=== PATIENT | female | born 1930 | race African-American/Black ===

== ENCOUNTER 2017-03-20 04:57 | Inpatient (IN) | payer OTHER ==
[~2017-03-20] VITALS: Ht 162.6 cm; Wt 85.7 kg
--- NOTE | ~2017-03-20 | EKG ---
[place] [address] [facility] [place] [address] ELECTROCARDIOGRAM REPORT Name: YSABEL CHAVARRIA Room #: 445-P ADM IN M.R.#: [id number] Admission: 03/20/17 Attend Phys: Rigo Schulte DO Discharge: Date of : 30 Report #: [id number] THIS REPORT FOR: //name// [facility] ED Test Date: 2017-03-20 Test Time: 05:47:17 Pat Name: YSABEL CHAVARRIA Department: Room: [facility] Gender: F Radio Frequency Design Engineer: ELVIRA : [id number] Requested By: Piero Allen Order Number: [id number] MD: Gatito Martins Measurements Intervals Corea Rate: 89 P: 70 KS: 186 QRS: 17 QRSD: 81 T: 43 QT: 375 QTc: 457 Interpretive Statements Sinus rhythm Minimal ST elevation, anterior leads No previous ECG available for comparison Electronically Signed On 03-20-2017 9:29:07 CDT by Gatito Martins [email or web address] <ELECTRONICALLY SIGNED> By: Gatito Martins MD, [facility] 03/20/17 0929 0547 [id number] Gatito Martins MD, FACC /EPI
--- NOTE | ~2017-03-20 | 2DMMODE ---
[facility] [address] [place] [address] 2 D/M-MODE ECHOCARDIOGRAM Name: DEONYSABEL Room #: 445-P [facility] IN .R.#: [id number] Admission: 03/20/17 Attend Phys: Rigo Schulte, Discharge: Date of : 30 Date of Service: 03/20/17 1120 Report #: [id number] THIS REPORT FOR: //name// APPROVED REPORT Study performed: 03/20/2017 10:30:43 EXAM: Comprehensive 2D, Doppler, and color-flow Echocardiogram Patient Location: Echo lab Room #: 445 Other Information Study Quality: Good Indications Murmur Hypertension/HDD 2D Dimensions RVDd: 23.65 mm LVEF(%): 57.69 (>50%) IVSd: 10.16 (7-11mm) LVOT Diam: 18.95 (18-24mm) LVDd: 40.05 mm PWd: 11.65 (7-11mm) Ascending Ao: 26.62 (22-36mm) LVDs: 28.06 (25-40mm) Aortic Root: 28.44 mm IVC: 7.00 mm Fernandez's LVEF: 57.69 % Volumes Left Atrial Volume (Systole) Single Plane 4CH: 39.68 mL Single Plane 2CH: 27.20 mL LA ESV Index: 18.00 mL/m2 Aortic Valve AoV Peak Mitchell.: 1.41 m/s AO Peak Gr.: 7.93 mmHg LVOT Max P.93 mmHg LVOT Max V: 0.99 m/s GUNNAR Vmax: 1.98 cm2 Mitral Valve E/A Ratio: 0.5 MV Decel. Time: 139.67 ms MV E Max Mitchell.: 0.62 m/s MV A Mitchell.: 1.20 m/s MV PHT: 40.51 ms [facility] [place] [address] 2 D/M-MODE ECHOCARDIOGRAM Name: YSABEL CHAVARRIA Room #: 445-P [facility] IN ..#: [id number] Admission: 03/20/17 Attend Phys: Rigo Schulte, Discharge: Date of : 30 Date of Service: 03/20/17 1120 Report #: [id number] IVRT: 121.11 ms Pulmonary Valve PV Peak Mitchell.: 1.17 m/s PV Peak Gr.: 5.48 mmHg Pulmonary Vein P Vein S: 0.56 m/s P Vein A: 0.32 m/s P Vein D: 0.36 m/s P Vein A Dur.: 124.6 msec P Vein S/D Ratio: 1.56 Tricuspid Valve TR Peak Mitchell.: 2.89 m/s RAP Estimate: 5.00 mmHg TR Peak Gr.: 33.37 mmHg Left Ventricle The left ventricle is normal size. There is normal left ventricular wall thickness. The left ventricular systolic function is normal. The left ventricular ejection fraction is within the normal range. LVEF is 55-60%. Mild diastolic dysfunction is present (impaired relaxation pattern). Right Ventricle The right ventricle is normal size. The right ventricular systolic function is normal. Atria The left atrium size is normal. Right atrium is at the upper limits of normal. Aortic Valve The aortic valve is normal in structure. No aortic regurgitation is present. There is no aortic valvular stenosis. Mitral Valve The mitral valve is normal in structure. Trace mitral regurgitation. No evidence of mitral valve stenosis. Tricuspid Valve The tricuspid valve is normal in structure. There is mild tricuspid regurgitation. The right atrial pressure is estimated at 5 mmHg and PAP is estimated at 38 mmHg. Pulmonic Valve Pulmonic valve is not well visualized. There is no pulmonic valvular regurgitation seen. [address] [address] 2 D/M-MODE ECHOCARDIOGRAM Name: YSABEL CHAVARRIA Room #: 445-P [facility] IN .R.#: [id number] Admission: 03/20/17 Attend Phys: Rigo Schulte, Discharge: Date of : 30 Date of Service: 03/20/17 1120 Report #: [id number] Great Vessels The aortic root is normal in size. IVC is normal in size and collapses >50% with inspiration. <Conclusion> The left ventricle is normal size. LVEF is 55-60%. The aortic valve is normal in structure. No aortic regurgitation is present. The mitral valve is normal in structure. Trace mitral regurgitation. The tricuspid valve is normal in structure. There is mild tricuspid regurgitation. The right atrial pressure is estimated at 5 mmHg and PAP is estimated at 38 mmHg. Pulmonic valve is not well visualized. <ELECTRONICALLY SIGNED> By: Sergio Burch MD 03/20/17 1120 19 19 Sergio Burch MD /INF
[2017-03-20 05:00] VITALS: BP 143/76
[2017-03-20 05:25] LABS: URINE BILIRUBIN NEGATIVE (Negative); URINE BLOOD TRACE (Negative); URINE COLOR YELLOW; URINE GLUCOSE-RANDOM* NEGATIVE (Negative); URINE KETONES NEGATIVE (Negative); URINE NITRITE NEGATIVE (Negative); URINE PROTEIN (DIPSTICK) TRACE (Negative); URINE SPECIFIC GRAVITY <= 1.005 (1.003-1.035); URINE UROBILINOGEN 0.2 E.U./dl (0.2-1.0)
[2017-03-20 05:33] LABS: AMP/METHAMP Negative (Negative); BARBITURATES Negative (Negative); BENZODIAZEPINES Negative (Negative); COCAINE Negative (Negative); METHADONE Negative (Negative); OPIATES Negative (Negative); PCP Negative (Negative); THC Negative (Negative)
[2017-03-20 05:42] LABS: CASTS None Seen /LPF (None Seen); SQUAMOUS 0-3 Few /LPF (0-3); URINE RBC 0-2 Rare /HPF (0-2); URINE WBC 0-5 Rare /HPF (0-5)
[2017-03-20 05:43] LABS: BACTERIA None Seen /HPF (None Seen); CRYSTALS None Seen /LPF (None Seen)
[2017-03-20 06:12] LABS: ABSOLUTE NEUTROPHILS 4.3 thou/uL (1.4-8.2); BASOPHILS 0.7 % (0.0-2.0); HEMATOCRIT 37.5 % (37.0-47.0); HEMOGLOBIN 12.6 gm/dL (12.0-15.0); LYMPHOCYTES 22.9 % (24.0-44.0); MCH 32.5 pg (26.0-34.0); MCHC 33.7 g/dL (28.0-37.0); MCV 96.3 fL (80.0-100.0); MONOCYTES 8.7 % (1.0-8.0); PLATELET COUNT 153 thou/uL (150-400); POLYS 66.7 % (36.0-66.0); RBC 3.89 mil/uL (4.20-5.00); RDW 13.6 % (10.5-14.5); WBC 6.5 thou/uL (4.0-11.0)
[2017-03-20 06:22] LABS: ANION GAP 10 mmol/L (7-16); BUN 23 mg/dL (7-18); CALCIUM 9.4 mg/dL (8.5-10.1); CHLORIDE 108 mmol/L (98-107); CO2 25 mmol/L (21-32); CREATININE 2.3 mg/dL (0.6-1.0); GLUCOSE 114 mg/dL (74-106); POTASSIUM 4.5 mmol/L (3.5-5.1); SODIUM 143 mmol/L (136-145)
[2017-03-20 06:28] LABS: ALBUMIN 3.5 g/dL (3.4-5.0); ALKALINE PHOSPHATASE 94 U/L (46-116); SALICYLATE < 2.8 mg/dL (2.8-20.0); SGOT 30 U/L (15-37); SGPT 16 U/L (30-65); TOTAL BILIRUBIN 0.5 mg/dL (<0.1-1.0); TOTAL PROTEIN 7.6 g/dL (6.4-8.2); TROPONIN-I 0.06 ng/mL (<0.04-0.07)
[2017-03-20 06:32] LABS: ACETAMINOPHEN < 2 ug/mL (10-30)
[2017-03-20 06:41] LABS: MANUAL DIFF NO
[2017-03-20 07:45] VITALS: BP 157/75
[2017-03-20 09:15] VITALS: BP 152/72
[2017-03-20] MEDS ORDERED: LOVASTATIN 20 M20 MG PO (14:30)
[2017-03-20] MEDS ORDERED: PEPCID20 MG PO (14:31)
[2017-03-20] MEDS ORDERED: COZAAR 50 MG TA50 M2 PO (14:32)
[2017-03-20] MEDS ORDERED: HYDROCHLOROTHIA25 M2 PO (14:33)
[2017-03-20] MEDS ORDERED: TRAVATAN Z2.5 ML OPHTHALMIC (14:36)
[2017-03-20] MEDS ORDERED: COSOPT EYE DROPS5 ML (14:36)
[2017-03-20 16:00] VITALS: BP 144/62
[2017-03-20 21:40] VITALS: BP 142/75
[2017-03-21 03:20] VITALS: BP 145/61
[2017-03-21 07:04] LABS: ABSOLUTE NEUTROPHILS 3.7 thou/uL (1.4-8.2); BASOPHILS 0.9 % (0.0-2.0); EOSINOPHILS 2.2 % (0.0-3.0); HEMATOCRIT 38.4 % (37.0-47.0); HEMOGLOBIN 12.9 gm/dL (12.0-15.0); LYMPHOCYTES 35.1 % (24.0-44.0); MCH 32.5 pg (26.0-34.0); MCHC 33.6 g/dL (28.0-37.0); MCV 96.7 fL (80.0-100.0); MONOCYTES 9.2 % (1.0-8.0); POLYS 52.6 % (36.0-66.0); RBC 3.97 mil/uL (4.20-5.00); RDW 13.7 % (10.5-14.5); WBC 7.9 thou/uL (4.0-11.0)
[2017-03-21 07:07] LABS: MANUAL DIFF NO
[2017-03-21 07:13] LABS: CALCIUM 9.1 mg/dL (8.5-10.1); POTASSIUM 3.8 mmol/L (3.5-5.1)
[2017-03-21 08:00] VITALS: BP 145/65
[2017-03-21 08:20] LABS: PLATELET COUNT 147 thou/uL (150-400); PLATELET ESTIMATE NORMAL; POLYCHROMASIA SLIGHT
[2017-03-21 13:29] VITALS: BP 145/65
== END 2017-03-21 17:48 | disposition home health service (06) | DRG 682 ==
LOC: ER 04:57 → 4S 07:09
PROVIDERS: Emergency Medicine; Family Medicine
DX: N17.9 Acute kidney failure, unspecified (principal); G93.41 Metabolic encephalopathy; F05 Delirium due to known physiological condition; H40.9 Unspecified glaucoma; I10 Essential (primary) hypertension; F03.90 Unspecified dementia, unspecified severity, without behavioral disturbance, psychotic disturbance, mood disturbance, and anxiety; E86.0 Dehydration; R01.1 Cardiac murmur, unspecified; Z79.899 Other long term (current) drug therapy
CPT/HCPCS: 10100